=== PATIENT | male | born 1990 | race Caucasian/White ===

== ENCOUNTER 2018-09-10 06:27 | Day surgery (SDC) | payer OTHER ==
[2018-09-05 10:07] LABS: APPEARANCE,URINE CLEAR; BILIRUBIN,URINE NEGATIVE (NEGATIVE); COLOR,URINE STRAW; GLUCOSE, URINE NEGATIVE (NEGATIVE); KETONES,URINE NEGATIVE (NEGATIVE); LEUKOCYTE ESTERASE,URINE NEGATIVE (NEGATIVE); NITRITE,URINE NEGATIVE (NEGATIVE); PROTEIN,URINE NEGATIVE (NEGATIVE); URINE SPECIFIC GRAVITY 1.008; UROBILINOGEN,URINE NEGATIVE mg/dL (<2.0)
[2018-09-05 10:45] LABS: ANION GAP 14 (5-19); BLOOD UREA NITROGEN 17 mg/dL (7-20); CALCIUM 10.9 mg/dL (8.4-10.2); CARBON DIOXIDE 27 mmol/L (22-30); CHLORIDE 101 mmol/L (98-107); GLUCOSE 90 mg/dL (75-110); POTASSIUM 4.6 mmol/L (3.6-5.0); SODIUM 142.3 mmol/L (137-145)
[2018-09-05 14:22] LABS: HEMOGLOBIN 16.9 g/dL (13.5-17.0); PLATELET COUNT 224 10^3/uL (150-450); WHITE BLOOD COUNT 7.4 10^3/uL (4.0-10.5)
[~2018-09-10 06:27] MED LIST: ACETAMINOPHEN 1,000 MG/100 ML RTUPB IV ONE; CEFAZOLIN 2 GM/D5W RTU 2 GM/50 ML RTUPB IV ONE; CEFAZOLIN 2 GM/D5W RTU 2 GM/50 ML RTUPB IV PRN; DEXAMETHASONE SOD PHOSPHATE INJ 4 MG/1 ML VIAL ONE; FENTANYL CITRATE INJ/PF 100 MCG/2 ML AMPUL ONE; LACTATED RINGERS 1000 ML IV PRN; LIDOCAINE 0.5% INJ-PF (5 MG/ML) 50 ML SDV SUBCUT PRN; MIDAZOLAM 2 MG/2 ML INJ ONE; ONDANSETRON HCL INJ/PF 4 MG/2 ML SDV ONE; PROPOFOL INJ 200 MG/20 ML VIAL IV ONE
[2018-09-10] MEDS ORDERED: BUPIVACAINE HCL 0.5 % INJ/PF 30 ML SDV ONE (07:19)
[2018-09-10] MEDS ORDERED: SCOPOLAMINE HYDROBROMIDE 1.5 MG PATCH.TD72 ONE (07:41)
[2018-09-10] MEDS ORDERED: FAMOTIDINE INJ/PF 20 MG/2 ML SDV IV ONE ×2 (07:41→07:45)
[2018-09-10] MEDS ORDERED: SCOPOLAMINE HYDROBROMIDE 1.5 MG PATCH.TD72 TD ONE (07:45)
[2018-09-10] MEDS ORDERED: MORPHINE SULFATE 10 MG/ML INJ IV PRN ×2 (09:40→11:01)
[2018-09-10] MEDS ORDERED: DIPHENHYDRAMINE HCL 50 MG/ML VIAL IV PRN (09:40)
[2018-09-10] MEDS ORDERED: MEPERIDINE HCL/PF INJ 25 MG/1 ML DISP.SYRIN IV PRN (09:40)
[2018-09-10] MEDS ORDERED: FENTANYL CITRATE INJ/PF 100 MCG/2 ML AMPUL IV PRN ×3 (09:40)
[2018-09-10] MEDS ORDERED: PROMETHAZINE HCL INJ 25 MG/1 ML VIAL IV PRN ×2 (09:40)
[2018-09-10] MEDS ORDERED: ONDANSETRON HCL INJ/PF 4 MG/2 ML SDV IV PRN (11:01)
[2018-09-10] MEDS ORDERED: OXYCODONE-ACETAMINOPHEN 5-325 MG TABLET PO PRN (11:01)
--- NOTE | 2018-09-10 11:02 | Discharge Summary ---
Discharge Summary (SDC) - Discharge Final Diagnosis: Right cubital tunnel syndrome Date of Surgery: 09/10/18 Discharge Date: 09/10/18 Condition: Good Treatment or Instructions: Schedule Follow Up w/ Dr. Benji Mckinley @ [facility] to be seen in 10-14 days or as scheduled [place]: [place]: [place]: Ice and elevate Keep splint clean/dry/intact, do not remove. If your fingers become numb please unwrap the Dileep wrap but leave the splint in place, if the sensation does not return within 30 minutes please return to the emergency department. May begin finger range of motion attempting to make full fist. Please use ibuprofen (Motrin or Advil) 600-800 mg every 8 hours as needed for pain or fever DO NOT TAKE w/ TORADOL may use once TORADOL complete. You may also use acetaminophen (Tylenol) 1000 mg every 4-6 hours as needed for pain or fever. Please be aware that many medications contain acetaminophen, do not exceed a total of 1000 mg of acetaminophen every 6 hours. If ibuprofen and acetaminophen are not sufficient for your pain you may take the Percocet/[place]. Please be aware that the Percocet/[place] does contain Tylenol. Stool softener of choice when on pain medication. USE OF [id number] IBUPROFEN: Ibuprofen (Advil, Nuprin, Medipren, Motrin IB) is a medication for fever and pain control. In addition, it has anti- inflammatory effects which may be beneficial, especially in the treatment of injuries. It's best to take ibuprofen with food. Persons with ulcer disease or allergy to aspirin should notify their physician of this before taking ibuprofen. Ibuprofen can be given every four to six hours, for a total of four doses daily. Age Pain or fever dose Antiinflammatory dose 6-8 yr 200 mg (1 tab) 200 mg (1 tab) 9-11 yr 200 mg (1 tab) 200-400 mg (1-2 tab) 11-14 yr 200-400 mg (1-2 tab) 400 mg (2 tab) 15-adult 400 mg (2 tab) 600 mg (3 tab) ORAL NARCOTIC MEDICATION: You have been given a prescription for pain control. This medication is a narcotic. It's best taken with food, as nausea can result if taken on an empty stomach. Don't operate machinery or drive within six hours of taking this medication. Do not combine this medicine with alcohol, or with any medication which can cause sedation (such as cold tablets or sleeping pills) unless you get permission from the physician. Narcotics tend to cause constipation. If possible, drink plenty of fluids and eat a diet high in fiber and fruits. Please be aware that prescription narcotics also have the potential for abuse. People become addicted to these medications because of the general sense of wellbeing that they induce. This feeling along with a significant reduction in tension, anxiety, and aggression provides a stimulating seductive quality to these drugs. Once your pain is under control, we encourage you to discard your unused narcotics. Prescriptions: Oxycodone HCl/Acetaminophen [Percocet 5-325 mg Tablet] 1 tab PO Q6 PRN #25 tab PRN Reason: Discharge Diet: As Tolerated Respiratory Treatments at Home: Deep Breathing/Coughing Discharge Activity: No Lifting Over 10 Pounds, No Lifting/Push/Pulling Report the Following to Your Physician Immediately: Fever over 101 Degrees, Unusual Bleeding, Redness, Swelling, Warmth, Increased Soreness
[2018-09-10] MEDS ORDERED: PROMETHAZINE HCL INJ 25 MG/1 ML VIAL ONE (11:06)
--- NOTE | 2018-09-10 11:09 | Operative Report ---
Operative Report DATE OF SURGERY: 09/10/18 PREOPERATIVE DIAGNOSIS: Right cubital tunnel syndrome POSTOPERATIVE DIAGNOSIS: Same OPERATION: Right cubital tunnel release with ulnar nerve transposition SURGEON: VAMSHI CADE ANESTHESIA: GA COMPLICATIONS: None ESTIMATED BLOOD LOSS: Minimal PROCEDURE: Indication for above procedure: 28-year-old male with complaints of numbness and tingling in the ring and small finger. Patient had subluxation of the ulnar nerve and physical examination with irritation on the triceps tendon medially. At that point we discussed treatment options attempted conservative management without resolution of patient's symptoms decision was made to proceed with operative intervention. Risks and benefits were explained patient verbalized understanding consented for surgical procedure. Procedure In Detail: Patient was seen and evaluated in the preoperative holding area. The RIGHT upper extremity was initialized and marked. Patient received 2g of Ancef IV for bacterial prophylaxis. Patient was taken back to the operative room where transferred to the operative table and placed under general anesthesia. Once they were adequately anesthetized and a nonsterile tourniquet was placed on the upper extremity. A surgical team debriefing was performed ensuring all instrumentation was available, the surgical procedure was discussed with possible concerns reviewed. The upper extremity was prepped with chlorhexidine and alcohol and draped in a sterile fashion. A timeout was done identifying correct patient, procedure and extremity everyone in attendance agree with this and verbalized no concerns. The extremity was exsanguinated the tourniquet was inflated to 250 mmHg. A longitudinal skin incision was made centered over the cubital tunnel. Careful dissection was done through the overlying soft tissues any peripheral vasculature was carefully coagulated with bipolar cautery. The branches of the medial antebrachial cutaneous nerve were identified and protected throughout the entirety of the case. Once within the confines of the cubital tunnel the ulnar nerve was identified at the proximal aspect of the wound. At this level a medial portion of the triceps and the medial intermuscular septum was released freeing the ulnar nerve proximally of any overlying soft tissue compression. Medial fascial band of the triceps was causing irritation to the ulnar nerve. There is also evidence of a anconeus epitrochlear this inserting along the medial aspect of the olecranon. Fascial bands were released to avoid residual snapping of the triceps with elbow flexion. There is significant ulnar nerve compression as it entered cubital tunnel deep to [place]'s ligament. At the level of the FCU aponeurosis between the 2 heads of the FCU muscle. The fascia was released once again relieving any external compression from the ulnar nerve distally past the level of the first motor branch. Neuro lysis was performed posteriorly ensuring there is no remaining soft tissue bands causing compression. During dissection of the nerve careful attention was directed at avoiding disruption of the ulnar nerve blood supply. Elbow range of motion was then done from full flexion to full extension with full flexion there was evidence of anterior subluxation of the ulnar nerve from the groove. And thus it was determined patient would require anterior subcutaneous ulnar nerve transposition To perform the transposition skin incision was extended proximally and distally the nerve was further freed from overlying soft tissue distally within the FCU muscle bellies and proximally along the medial intermuscular septum. A section of the medial intermuscular septum which was likely contributing to patient's preoperative snapping symptoms was removed to avoid proximal compression or kinking of the nerve after transposition. A vessel loop was placed around the nerve and its posterior vasculature both of which were carefully transposed anteriorly, branches were coagulated distally with bipolar cautery. At this point the nerve was checked proximally and distally to confirm there was no compression with range of motion from full flexion to full extension. Once ensured no compression of the nerve, the subcutaneous tissues were dissected bluntly anterior taking note to avoid any branches of the medial antebrachial cutaneous nerve. A small subcutaneous flap of adipose tissue this was carefully secured to the medial epicondyle with a 3-0 Vicryl suture while a [place] was placed at the level of the ulnar nerve to ensure no external compression from my subcutaneous flap. Once this was complete the elbow was flexed and extended ensuring no proximal or distal compression of the ulnar nerve. The tourniquet was then deflated. Compression was made to the wound for 2 minutes. I then identified any peripheral bleeding and carefully coagulated with bipolar cautery. The wound was then irrigated with normal saline. Subcutaneous tissues were closed with interrupted 3-0 Monocryl. Skin was closed a running subcuticular 4-0 Monocryl reinforced with Dermabond and Steri-Strips. Wounds dressed with 4 x 4's, soft roll and a posterior splint with the elbow at 70. Sponge counts, instrument counts, needle counts counts were correct. Patient was then awoken from anesthesia. Transferred from the operating room table to the operating room stretcher. There was no intraoperative complications patient tolerated procedure well stable to PACU. Postoperative plan: Patient will follow-up in the office as scheduled which point we will proceed with wound check. They may begin gentle range of motion exercises but avoid any heavy lifting.
[2018-09-10] MEDS ORDERED: METOCLOPRAMIDE HCL INJ/PF 10 MG/2 ML SDV ONE (11:13)
[2018-09-10] MEDS ORDERED: DIPHENHYDRAMINE HCL 50 MG/ML VIAL ONE (11:13)
[2018-09-10] MEDS ORDERED: KETOROLAC TROMETHAMINE INJ/PF 30 MG/1 ML SDV ONE (11:45)
[2018-09-10] MEDS ORDERED: ROCURONIUM BROMIDE INJ 50 MG/5 ML VIAL IV ONE (12:04)
[2018-09-10] MEDS ORDERED: SUCCINYLCHOLINE CHLORIDE INJ 200 MG/10 ML VIAL ONE (12:04)
[2018-09-10] MEDS ORDERED: OXYCODONE-ACETAMINOPHEN 5-325 MG TABLET ONE (12:47)
[2018-09-10 13:41] VITALS: BP 114/59
== END 2018-09-10 13:35 | disposition home or self-care (01) ==
LOC: OROUT 06:27
PROVIDERS: ATTEND Orthopaedic Surgery
DX: G56.21 Lesion of ulnar nerve, right upper limb (principal); Z79.899 Other long term (current) drug therapy; K58.9 Irritable bowel syndrome, unspecified
CPT/HCPCS: 36415; 85027; 80048; 81001; 64718; J2250; J3490 ×2; J1100; J1200; J3010; J1885; J2765; J2550; J0330; J2405; J2704; S0028; J0690; J0131; 1710

== ENCOUNTER 2018-10-29 05:24 | Day surgery (SDC) | payer OTHER ==
[2018-10-28 08:53] LABS: ABSOLUTE EOSINOPHILS # (AUTO) 0.3 10^3/uL (0.0-0.6); ABSOLUTE LYMPHOCYTES (AUTO) 1.8 10^3/uL (0.5-4.7); ABSOLUTE MONOCYTES (AUTO) 0.4 10^3/uL (0.1-1.4); ABSOLUTE NEUT (AUTO) 3.4 10^3/uL (1.7-8.2); BASOPHILS % (AUTO) 0.4 % (0-2); EOSINOPHILS % (AUTO) 5.5 % (0-6); HEMATOCRIT 46.6 % (37.9-51.0); HEMOGLOBIN 16.3 g/dL (13.5-17.0); LYMPHOCYTES % (AUTO) 30.5 % (13-45); MEAN CORPUSCULAR HEMOGLOBIN 29.4 pg (27.0-33.4); MEAN CORPUSCULAR HGB CONC 35.1 g/dL (32.0-36.0); MEAN CORPUSCULAR VOLUME 84 fl (80-97); MONOCYTES % (AUTO) 6.1 % (3-13); PLATELET COUNT 205 10^3/uL (150-450); RED BLOOD COUNT 5.55 10^6/uL (4.35-5.55); RED CELL DISTRIBUTION WIDTH 13.3 % (11.5-14.0); SEGMENTED NEUTROPHILS % (AUTO) 57.5 % (42-78); TOTAL CELLS COUNTED % (AUTO) 100 %; WHITE BLOOD COUNT 5.9 10^3/uL (4.0-10.5)
[2018-10-28 09:24] LABS: ANION GAP 13 (5-19); BLOOD UREA NITROGEN 10 mg/dL (7-20); CALCIUM 10.1 mg/dL (8.4-10.2); CARBON DIOXIDE 29 mmol/L (22-30); CHLORIDE 102 mmol/L (98-107); GLUCOSE 98 mg/dL (75-110); POTASSIUM 4.7 mmol/L (3.6-5.0); SODIUM 143.7 mmol/L (137-145)
[~2018-10-29 05:24] MED LIST changes: -ACETAMINOPHEN 1,000 MG/100 ML RTUPB IV ONE; -DEXAMETHASONE SOD PHOSPHATE INJ 4 MG/1 ML VIAL ONE; -FENTANYL CITRATE INJ/PF 100 MCG/2 ML AMPUL ONE; -MIDAZOLAM 2 MG/2 ML INJ ONE; -ONDANSETRON HCL INJ/PF 4 MG/2 ML SDV ONE; -PROPOFOL INJ 200 MG/20 ML VIAL IV ONE
[2018-10-29] MEDS ORDERED: DEXAMETHASONE SOD PHOSPHATE INJ 4 MG/1 ML VIAL ONE (06:21)
[2018-10-29] MEDS ORDERED: FENTANYL CITRATE INJ/PF 100 MCG/2 ML AMPUL ONE ×2 (06:21→10:36)
[2018-10-29] MEDS ORDERED: MIDAZOLAM 2 MG/2 ML INJ ONE (06:21)
[2018-10-29] MEDS ORDERED: ONDANSETRON HCL INJ/PF 4 MG/2 ML SDV ONE ×2 (06:21→11:11)
[2018-10-29] MEDS ORDERED: PROPOFOL INJ 200 MG/20 ML VIAL IV ONE (06:21)
[2018-10-29] MEDS ORDERED: LIDOCAINE 0.5% INJ-PF (5 MG/ML) 50 ML SDV ONE (06:24)
[2018-10-29] MEDS ORDERED: SCOPOLAMINE HYDROBROMIDE 1.5 MG PATCH.TD72 ONE (07:05)
[2018-10-29] MEDS ORDERED: ACETAMINOPHEN 325 MG TABLET ONE (07:07)
[2018-10-29] MEDS ORDERED: BUPIVACAINE HCL 0.5 % INJ/PF 30 ML SDV ONE (07:08)
[2018-10-29] MEDS ORDERED: PROMETHAZINE HCL INJ 25 MG/1 ML VIAL IV PRN ×2 (07:51)
[2018-10-29] MEDS ORDERED: MEPERIDINE HCL/PF INJ 25 MG/1 ML DISP.SYRIN IV PRN (07:51)
[2018-10-29] MEDS ORDERED: ONDANSETRON HCL INJ/PF 4 MG/2 ML SDV IV PRN ×2 (07:51→10:11)
[2018-10-29] MEDS ORDERED: FENTANYL CITRATE INJ/PF 100 MCG/2 ML AMPUL IV PRN ×2 (07:51)
[2018-10-29] MEDS ORDERED: DIPHENHYDRAMINE HCL 50 MG/ML VIAL IV PRN (07:51)
[2018-10-29] MEDS ORDERED: MORPHINE SULFATE 10 MG/ML INJ IV PRN (07:51)
[2018-10-29] MEDS ORDERED: OXYCODONE-ACETAMINOPHEN 5-325 MG TABLET PO PRN (10:11)
[2018-10-29] MEDS ORDERED: HYDROMORPHONE HCL INJ/PF 2 MG/ML AMPULE IV PRN (10:11)
--- NOTE | 2018-10-29 10:12 | Discharge Summary ---
Discharge Summary (SDC) - Discharge Final Diagnosis: Right cubital tunnel syndrome Date of Surgery: 10/29/18 Discharge Date: 10/29/18 Condition: Good Treatment or Instructions: Schedule Follow Up w/ Dr. Benji Mckinley @ [facility] to be seen in 10-14 days or as scheduled [place]: [place]: [place]: May remove dressing on postop day #3, keep incision covered and dry. Ice and elevate May begin finger range of motion attempting to make full fist. Stool softener of choice when on pain medication. USE OF [id number]-[id number] IBUPROFEN: Ibuprofen (Advil, Nuprin, Medipren, Motrin IB) is a medication for fever and pain control. In addition, it has anti- inflammatory effects which may be beneficial, especially in the treatment of injuries. It's best to take ibuprofen with food. Persons with ulcer disease or allergy to aspirin should notify their physician of this before taking ibuprofen. Ibuprofen can be given every four to six hours, for a total of four doses daily. Age Pain or fever dose Antiinflammatory dose 6-8 yr 200 mg (1 tab) 200 mg (1 tab) 9-11 yr 200 mg (1 tab) 200-400 mg (1-2 tab) 11-14 yr 200-400 mg (1-2 tab) 400 mg (2 tab) 15-adult 400 mg (2 tab) 600 mg (3 tab) ORAL NARCOTIC MEDICATION: You have been given a prescription for pain control. This medication is a narcotic. It's best taken with food, as nausea can result if taken on an empty stomach. Don't operate machinery or drive within six hours of taking this medication. Do not combine this medicine with alcohol, or with any medication which can cause sedation (such as cold tablets or sleeping pills) unless you get permission from the physician. Narcotics tend to cause constipation. If possible, drink plenty of fluids and eat a diet high in fiber and fruits. Please be aware that prescription narcotics also have the potential for abuse. People become addicted to these medications because of the general sense of wellbeing that they induce. This feeling along with a significant reduction in tension, anxiety, and aggression provides a stimulating seductive quality to these drugs. Once your pain is under control, we encourage you to discard your unused narcotics. Prescriptions: Oxycodone HCl/Acetaminophen [Percocet 5-325 mg Tablet] 1 tab PO Q6 PRN #25 tab PRN Reason: Discharge Diet: As Tolerated Respiratory Treatments at Home: Deep Breathing/Coughing Discharge Activity: No Lifting Over 10 Pounds, No Lifting/Push/Pulling Report the Following to Your Physician Immediately: Fever over 101 Degrees, Unusual Bleeding, Redness, Swelling, Warmth
[2018-10-29] MEDS: FENTANYL CITRATE INJ/PF 100 MCG/2 ML AMPUL IV PRN ×2 (10:37→10:53)
[2018-10-29] MEDS ORDERED: PROMETHAZINE HCL INJ 25 MG/1 ML VIAL ONE (10:51)
--- NOTE | 2018-10-29 10:52 | Operative Report ---
Operative Report DATE OF SURGERY: 10/29/18 PREOPERATIVE DIAGNOSIS: Persistent right upper extremity ulnar neuropathy POSTOPERATIVE DIAGNOSIS: Same OPERATION: Right elbow revision cubital tunnel release with submuscular ulnar nerve transposition with placement of Axogen nerve wrap SURGEON: VAMSHI CADE ANESTHESIA: GA COMPLICATIONS: Minimal ESTIMATED BLOOD LOSS: 25 cc PROCEDURE: Indication for above procedure: 28-year-old male being of his left elbow underwent cubital tunnel release unfortunately during the postoperative period patient continued to have dense ulnar neuropathy at that point decision was made to proceed with revision surgery to evaluate possibility of persistent compression. Risks and benefits of the surgical procedure were explained to the patient who verbalized understanding consented for surgical procedure. Procedure In Detail: Patient was seen and evaluated in the preoperative holding area. The RIGHT upper extremity was initialized and marked. Patient received 2g of Ancef IV for bacterial prophylaxis. Patient was taken back to the operative room where transferred to the operative table and placed under general anesthesia. Once they were adequately anesthetized a surgical team debriefing was performed ensuring all instrumentation was available, the surgical procedure was discussed with possible concerns reviewed. The upper extremity was prepped with chlorhexidine and alcohol and draped in a sterile fashion. A timeout was done identifying correct patient, procedure and extremity everyone in attendance agree with this and verbalized no concerns. A sterile tourniquet was placed on the right upper extremity which was then exsanguinated and tourniquet was inflated to 250 mmHg. Previous skin incision was then utilized. It was extended proximally and distally. Blunt dissection was performed. Along the proximal aspect of the incision the ulnar nerve was identified proximal to previous release point. Once the ulnar nerve was isolated at this level neuro lysis was performed from a proximal to distal direction. Significant fibrous tissue between the remaining triceps musculature and fascia was released. Ulnar nerve was followed at its subcutaneous transposition point. At this level superficial dissection was performed to identify the medial antebrachial cutaneous nerve as it crossed the incision site. Neuro lysis was performed from the more volar scar tissue as across the incision site. A vessel loop was placed around the nerve to protected throughout the case. Continuing dissection the ulnar nerve demonstrated improved vascularity. As dissection continued in a more distal direction distal to the level of the medial epicondyle as the ulnar nerve entered the FCU aponeurosis there was significant scarring to the deep forearm fascia and notable hourglassing of the nerve at this level. Meticulous dissection of the nerve at this level was performed under loupe magnification the posterior FCU branch fascicle was isolated to allow further mobility of the ulnar nerve. Dissection then continued into the FCU aponeurosis which once past the initial aponeurotic point the nerve demonstrated normal consistency and appearance. At completion there was no residual compression of the nerve. Then proceeded with submuscular transposition. Two 4 cm fascial flaps of the flexor pronator fascia were established. The intervening T-shaped septum was incised. An additional septum distal to the flexor pronator aponeurosis was also released and excised to avoid any additi onal fascial compression to the ulnar nerve. A flexor pronator slide was then performed distally once again to produce adequate nutritional bed for the ulnar nerve after transposition. Proximally any remnants of the medial intramuscular septum was incised and small peripheral vein coagulated with bipolar cautery. Wound was then copiously irrigated with normal saline. External neural lysis of the ulnar nerve was performed releasing any additional epineurium to avoid compression. A 40 mm x 10 mm Axogen nerve protector was then loosely wrapped around the nerve at the level of the medial epicondyle and secured with interrupted 604 0 nylon suture. The tourniquet was then deflated. Any peripheral bleeding was controlled with bipolar cautery until the wound was dry. Finger dissection was performed proximally and distally along the nerve to ensure no residual compression or [place] ligament causing compression more proximally. There is no evidence of compression throughout elbow range of motion. Fascial flaps of the submuscular transposition was reapproximated with 3-0 Vicryl suture. Additional range of motion of the elbow was performed from flexion and extension there was adequate mobility of the nerve proximally and distally confirmed with palpation of the nerve throughout range of motion. Wound was copiously irrigated with normal saline. 30 cc of 0.5% bupivacaine without epinephrine was injected for postoperative pain control. Subcutaneous tissues were closed with interrupted 3-0 Monocryl suture. Skin was closed with interrupted 3-0 nylon suture and patient was placed in a soft dressing. Sponge counts, instrument counts, needle counts were correct. Patient was then awoken from anesthesia. Transferred from the operating room table to the operating room stretcher. There was no intraoperative complications patient tolerated procedure well stable to PACU. Postoperative plan: Patient will begin occupational therapy within 48 hours to avoid recurrent scar formation and achieve full elbow range of motion.
[2018-10-29] MEDS ORDERED: HYDROMORPHONE HCL INJ/PF 2 MG/ML AMPULE ONE (11:23)
[2018-10-29] MEDS ORDERED: RINGERS SOLUTION,LACTATED 500 ML IV PRN (11:46)
[2018-10-29] MEDS ORDERED: OXYCODONE-ACETAMINOPHEN 5-325 MG TABLET ONE (12:07)
[2018-10-29 13:31] VITALS: BP 142/70
[2018-10-29] MEDS ORDERED: SUCCINYLCHOLINE CHLORIDE INJ 200 MG/10 ML VIAL ONE (14:55)
[2018-10-29] MEDS ORDERED: KETOROLAC TROMETHAMINE 60 MG/2 ML SDV ONE (14:55)
[2018-10-29] MEDS ORDERED: METOCLOPRAMIDE HCL INJ/PF 10 MG/2 ML SDV ONE (14:55)
== END 2018-10-29 13:00 | disposition home or self-care (01) ==
LOC: OROUT 05:24
PROVIDERS: ATTEND Orthopaedic Surgery
DX: G56.21 Lesion of ulnar nerve, right upper limb (principal); M25.521 Pain in right elbow; K58.9 Irritable bowel syndrome, unspecified; Z79.899 Other long term (current) drug therapy; Z01.89 Encounter for other specified special examinations
CPT/HCPCS: 36415; 85025; 80048; 64718; 64999; C9353; J2250; J3490 ×2; J1100; J1885; J3010; J2765; J1170; J2550; J0330; J2405; J2704; J0690; 1810